=== PATIENT | male | born 1960 | race Asian ===

== ENCOUNTER 2024-12-13 16:41 | Outpatient (CLI) | payer MEDICAID, SELFPAY | END 2024-12-13 16:42 | disposition home or self-care (01) | LOC: AMB 12-22 12:28 | PROVIDERS: Visit Provider Family Medicine | DX: J96.90 Respiratory failure, unspecified, unspecified whether with hypoxia or hypercapnia (principal) | CPT/HCPCS: A0425; A0434 ==